=== PATIENT | female | born 1935 | race Caucasian/White ===

== ENCOUNTER 2016-07-25 18:31 | Emergency (ER) | payer MEDICARE ==
[~2016-07-25] VITALS: Ht 154.9 cm; Wt 68.0 kg
--- NOTE | 2016-07-25 18:32 | ED.REPORT ---
HPI-Extremity Problem Upper Date of Service July 25, 2016 ED Provider: Dr. Edward Patient is a 80 year old female who was brought to the emergency department by EMS for a right shoulder injury that occurred prior to arrival. The patient states that she was reaching for the phone when she lost her balance and fell, landing on her right shoulder. She did not hit her head or lose consciousness. She denies neck pain, chest pain, abdominal pain, vomiting, or extremity pain. Nursing Notes Stated Complaint: RIGHT SHOULDER PAIN Nursing Notes Reviewed: Yes Allergies: Coded Allergies: codeine (Verified Allergy, Mild, nausea, 07/25/16) Uncoded Allergies: PENICILLIN (Allergy, Mild, rash, 07/25/16) General Time Seen by MD: 18:32 Chief Complaint Shoulder injury right Hx Obtained From: Patient Arrived By: Ambulance Onset Occurred: Just prior to arrival Symptom Duration: Since onset Caused by: Fall on ground Location: : Shoulder right Quality: Painful Severity: Current: Moderate Severity: Maximum: Moderate Recent Healthcare: No recent doctor visit, No recent hospitalization Similar Sx Previous: No Past Medical History Past Medical History Denies Past Surgical History cholecystectomy Family History Noncontributory Smoking History Never Smoker Social History Alcohol Use: "Social" Other Social History: Good social support, Local resident Ambulatory Status Independent Review of Systems Musculoskeletal: Reports: Joint pain (Right shoulder), Denies: Extremity pain, Neck pain Neurologic: Denies: Change LOC, Headache, Syncope Complete sys rev & neg: except as marked. Cardiovascular: Denies: Chest pain GI: Denies: Abdominal pain Physical Exam Initial Vital Signs Vital Signs (First) Date Time Temp Pulse Resp B/P Pulse Ox O2 Delivery O2 Flow Rate FiO2 07/25/16 18:35 36.6 57 18 165/56 95 Room Air Initial VS: Reviewed, Vital signs abnormal ENT: Mucous membranes moist, Conjunctiva normal, No scleral icterus Respiratory: Breath sounds normal, No respiratory distress Cardiovascular: Regular rate & rhythm, Heart sounds normal Abdomen / GI: Soft, Non-tender, No guarding, No rebound, No distention Lower Extremities: Vascular intact, Neuro intact Skin: Warm, Dry Neurologic: Alert, Oriented Psychiatric: Mood/affect normal, Behavior normal General/Constitutional: Awake, Alert, Not toxic appearing Neck: Atraumatic, Supple, Full range of motion, No midline vertebral tend Right Shoulder: Positive: Deformity present, ROM reduced Contusion on the right shoulder Head / Eyes: Normocephalic, PERRL, EOMI Bruise to the right cheek Back: Atraumatic, Inspection NL, Full range of motion Interpretation & Diagnostics Lab Results Interpretation Result Diagram: 07/25/16184407/25/161844 Test 07/25/16 18:45 White Blood Count 9.7th/mm3 (3.8-10.1) Red Blood Count 4.33mil/mm3 (3.90-5.20) Hemoglobin 12.7g/dL (12.0-15.6) Hematocrit 38.3% (35.0-46.0) Mean Corpuscular Volume 88.5fL (81-100) Mean Corpuscular Hemoglobin 29.3pg (27.0-35.0) Mean Corpuscular Hemoglobin Concent 33.2% (32.0-37.0) Red Cell Distribution Width 13.8% (12.3-15.4) Platelet Count 245bil/L (150-400) Neutrophils (%) (Auto) 45.2% (40-74) Lymphocytes (%) (Auto) 38.8% (14-46) Monocytes (%) (Auto) 10.8% (4-12) Eosinophils (%) (Auto) 4.2% (0-5) Basophils (%) (Auto) 0.3% (0-3) Sodium Level 137mEq/L (134-144) Potassium Level 3.6mEq/L (3.5-5.2) Chloride Level 101mEq/L (97-108) Carbon Dioxide Level 22mmol/L (18-29) Blood Urea Nitrogen 20mg/dL (8-27) Creatinine 0.67mg/dL (0.57-1.00) Estimat Glomerular Filtration Rate 122mL/min (>59) Glucose Level 143mg/dL (60-99) Calcium Level 9.4mg/dL (8.5-10.1) Magnesium Level 2.0mg/dL (1.6-2.6) Hold Zapata Top Tube Received (Received) X-Ray Interpretation Xray Interpretation: IMPRESSION: Right anterior shoulder dislocation Dictated by: Fco Florence M.D. on 07/25/2016 at 19:14 Approved by: Fco Florence M.D. on 07/25/2016 at 19:16 X-Ray Ordered: Shoulder right Interpretation / Wet Read by: Interpret - Radiologist Xray Interpretation: IMPRESSION: Improved alignment status post reduction of anterior shoulder dislocation Dictated by: Fco Florence M.D. on 07/25/2016 at 20:33 Approved by: Fco Florence M.D. on 07/25/2016 at 20:47 X-Ray Ordered: Shoulder right Interpretation / Wet Read by: Nancy - Radiologist Procedures Intra-Articular Injection Time: 19:20 Injection Performed by: ED physician Indication: Other (Dislocation) Consent / Setup / Site Prep: Consent from patient, Time-out performed, Hand hygiene observed Skin Preparation Agent: Hibiclens - Chlorhexidine Joint Injected: Shoulder right Local Anesthesia: Bupivacaine 0.5% (10cc) Post-Procedure / Complications: Antibiotic oint applied, Dressing placed, No complications, Condition improved, Tolerated procedure well, Patient stable Reduction Dislocated Shoulder Time: 19:30 Procedure Performed by: ED physician Consent / Setup: Informed consent provided, Consent from patient, Time-out performed, Hand hygiene observed Which Shoulder and Technique: Right shoulder, Scapular manipulation Neurovascular: Intact pre-procedure, Intact post-procedure Post-Procedure / Complications: Reduced per examination, Procedure successful, X-ray disloc reduced, Shoulder immobilized, Condition improved, Tolerated procedure well, Patient stable Re-Eval/Medical Decision Med Decision/Clinical Course The patient presents after mechanical fall, she has an isolated right shoulder injury. Her shoulder was dislocated and was reduced in the emergency department. The patient continued to have elevated blood pressure even though her pain was resolved. She does not have any symptoms or signs of end organ damage and was told to follow-up with her doctor within a week. Source of Hx: Old records Re-Evaluation/Progress #1: Time of Eval: 19:00 Re-Evaluation/Progress Note: Patient is informed of the procedure required to reduce her right shoulder. Re-Evaluation/Progress #2: Time of Eval: 19:45 Re-Evaluation/Progress Note: Patient is informed of successful reduction of her shoulder as well as the plan for discharge. She understands and agrees with the plan. All questions have been answered at this time. Counseled Regarding: Diagnosis, Need for follow-up, When/why to return to ED Discharge & Departure Impression: Primary Impression: Dislocated shoulder Encounter type: initial encounter Laterality: right Qualified Code: S43.004A - Unspecified dislocation of right shoulder joint, initial encounter Additional Impression: Hypertension Hypertension type: unspecified secondary hypertension Qualified Code: I15.9 - Secondary hypertension, unspecified Disposition: Home Discharge Condition All VS Reviewed: Yes Condition: Improved Additional Instructions: Thank you for entrusting us with your care today. Your shoulder was reduced without any complications. You should use the immobilizer for the next week. Call Dr. Heredia in 1 week for a followup. Follow up with your PCP in 1 week for your hypertension. Return to the emergency department if any new or worsening symptoms occur. Referrals: Miles Heredia Attestation Portions of this note were transcribed by Erick Haas and Yany Vázquez. I, Dr. Edward personally performed the history, physical exam and medical decision- making; I reviewed and confirmed the accuracy of the information in the transcribed note. Signed by: Nayeli Pinto, 07/25/16 - [id number]. copies to: Miles Heredia Jena M MD July 25, 2016 18:32 Erick Haas July 25, 2016 18:42 Yany Vázquez July 25, 2016 21:58
[2016-07-25 18:35] VITALS: BP 165/56; PULSE 57; RESP 18; O2SAT 95
[2016-07-25] MEDS: HYDROmorphone 0.5 mg/0.5 mL iSecure Syringe IVPUSH PRN ×2 (18:41→19:13)
[2016-07-25 18:59] LABS: BASOPHILS % (AUTO) 0.3 % (0-3); EOSINOPHILS % (AUTO) 4.2 % (0-5); MONOCYTES % (AUTO) 10.8 % (4-12); Mean Corpuscular Hemoglobin 29.3 pg (27.0-35.0); Mean Corpuscular Volume 88.5 fL (81-100); NEUTROPHILS % (AUTO) 45.2 % (40-74); Platelet Count 245 bil/L (150-400)
--- NOTE | 2016-07-25 19:17 | DRSVH ---
PROCEDURE: X-RAY RIGHT SHOULDER, MINIMUM TWO VIEWS ([id number]) INDICATIONS: fall TECHNIQUE: 2 views of the shoulder were acquired. COMPARISON: None. FINDINGS: Bones: There is anterior shoulder dislocation. No definite fracture seen. Glenohumeral and acromiocla vicular degenerative spurring Soft tissues: No suspicious soft tissue calcifications. IMPRESSION: Right anterior shoulder dislocation Dictated by: Fco Florence M.D. on 07/25/2016 at 19:14 Approved by: Fco Florence M.D. on 07/25/2016 at 19:16
[2016-07-25 20:18] VITALS: BP 187/72; PULSE 59; RESP 18; O2SAT 98
[2016-07-25] MEDS ORDERED: Ondansetron 2 mg/mL 2 mL Inj ONE (20:21)
[2016-07-25] MEDS ORDERED: Ondansetron 2 mg/mL 2 mL Inj IVPUSH ONE (20:25)
--- NOTE | 2016-07-25 20:48 | DRSVH ---
PROCEDURE: X-RAY RIGHT SHOULDER, MINIMUM TWO VIEWS ([id number]) INDICATIONS: post reduction TECHNIQUE: 3 views of the shoulder were acquired. .[facility], CR, XR SHOULDER MIN 2VW RT, 07/25/2016, 18:42. FINDINGS: Bones: There is improved alignment, status post reduction of anterior shoulder dislocation. No fractu re identified. No suspicious bony lesions. Visualized ribs appear intact. Soft tissues: No suspicious soft tissue calcifications. IMPRESSION: Improved alignment status post reduction of anterior shoulder dislocation Dictated by: Fco Florence M.D. on 07/25/2016 at 20:33 Approved by: Fco Florence M.D. on 07/25/2016 at 20:47
== END 2016-07-25 20:37 | disposition home or self-care (01) ==
LOC: SED 18:31
DX: S43.004A Unspecified dislocation of right shoulder joint, initial encounter (principal); W01.0XXA Fall on same level from slipping, tripping and stumbling without subsequent striking against object, initial encounter; Y93.89 Activity, other specified; Y92.019 Unspecified place in single-family (private) house as the place of occurrence of the external cause; Y99.8 Other external cause status; I15.9 Secondary hypertension, unspecified; Z88.5 Allergy status to narcotic agent
CPT/HCPCS: 23650; 36415; 73030; 80048; 83735; 85025; 96374; 96375; 96376; 99285; J1170; J2405